=== PATIENT | male | born 1980 | race Caucasian/White ===

== ENCOUNTER 2023-05-20 05:50 | Day surgery (SDC) | payer OTHER ==
[~2023-05-20] VITALS: Ht 175.3 cm; Wt 156.8 kg
[~2023-05-20 05:50] MED LIST: ASPIRIN81 MG PO; TOPROL XL25 MG PO
[2023-05-20 05:55] VITALS: BP 106/66
[2023-05-20 12:08] VITALS: BP 129/70
[2023-05-20 13:22] VITALS: BP 146/79
== END 2023-05-20 13:40 | disposition home or self-care (01) ==
LOC: DS 05:50 → OPS 05:50 → DS 09:00 → OPS 13:40
PROVIDERS: ATTEND Dentist General Practice
DX: K02.9 Dental caries, unspecified (principal); F41.8 Other specified anxiety disorders; K05.6 Periodontal disease, unspecified
CPT/HCPCS: 00170; J0330; J1100; J1885; J2250; J2405; J2704; J2765; J3010; J7121